=== PATIENT | female | born 2000 | race Caucasian/White ===

== ENCOUNTER 2021-12-12 22:25 | Emergency (ER) ==
[~2021-12-12] VITALS: Ht 157.5 cm; Wt 69.3 kg
[2021-12-12 22:26] VITALS: BP 155/73
[2021-12-13] MEDS ORDERED: BENZ200C70 PO (09:48)
[2021-12-13] MEDS ORDERED: ONDA4TAB6 PO (09:48)
== END 2021-12-13 00:38 | disposition left against medical advice (07) ==
LOC: M ED 22:25
DX: Z53.29 Procedure and treatment not carried out because of patient's decision for other reasons (principal)